=== PATIENT | female | born 1965 | race Two or more races ===

== ENCOUNTER 2016-06-07 02:51 | Emergency (ER) | payer OTHER ==
[~2016-06-07] VITALS: Ht 162.6 cm; Wt 81.6 kg
[2016-06-07 02:55] VITALS: BP 139/102
--- NOTE | 2016-06-07 03:21 | PHYS DOC ---
General Chief Complaint: FLANK PAIN Stated Complaint: FLANK PAIN,FEVER,MULTIPLE COMPLAINTS Time Seen by MD: 03:11 Source: patient, family Problems: History of Present Illness Initial Comments Patient here with for right flank pain. Patient says it started 2 days ago. She said she did fall over and her tried to pull her up, she may have pulled her back. She also states she has some chronic low back pain problems, but this feels somewhat different is rather higher in the flank area. She's had no fever or chills. There is no runny nose or sore throat. There is no chest pain or shortness of breath. She has no nausea vomiting or abdominal pain. She does have some increased frequency of urination or urinary looks dark and cloudy to her. She has mild dysuria. There is no change in bowel habits. There is no vaginal bleeding or discharge. She denies any focal extremity or neurologic complaints. Patient's done some cranberry juice and water for this at home. She says she actually does feel better with those, and was actually getting better with cranberry juice yesterday, but the pain got worse tonight so she decided to come to the ER. There's been nothing else done for this at home and no fractures noted increase or decrease her symptoms other than as described. Patient's past medical history history is remarkable for anxiety. She takes medication on an as-needed basis. She is a nonsmoker and nonuser of ethanol. There is no family history of renal stones. Allergies: Coded Allergies: Iodinated Contrast Media - Oral and (Verified Allergy, Intermediate, ) Penicillins (Verified Allergy, Intermediate, 06/07/16) shellfish derived (Verified Allergy, Intermediate, 06/07/16) Past Medical History Medical History: no pertinent history Psychosocial History: anxiety Social History Smoker: non-smoker Alcohol: none Review of Systems All Other Systems: Reviewed and Negative Physical Exam General Appearance: WD/WN, no apparent distress Neck: full range of motion, supple Respiratory: lungs clear, normal breath sounds, no respiratory distress Cardiovascular: regular rate, rhythm, no edema Gastrointestinal: non tender, soft, no organomegaly Back: no vertebral tenderness, CVA tenderness (R) Extremities: non-tender, normal inspection, no pedal edema Neurologic/Psychiatric: alert, normal mood/affect, oriented x 3 Skin: normal color Comments Generally is a well-developed well-nourished female in no acute distress. Vitals are as noted. Pertinent findings on physical exam shows a chest clear. Cardiac vascular exam shows regular rate and rhythm without murmur. The abdomen is soft and nontender without masses or megaly. There is no perineal findings. Back does show some mild right CVA tenderness. There is no signs of trauma. There is no vertebral tenderness. X-ray show no rash cyanosis or edema. She is awake alert oriented and cooperative with exam. Remainder of physical exam is clincially unremarkable. Orders, Labs, Meds Old charts note no prior ER visits within the current system. Labs today show a mildly elevated white count of 16.7. There is no significant shift. Chemistry profile is unremarkable. Patient is to numerous to count white cells, red cells, many bacteria, but negative nitrite. CT scan of the abdomen and pelvis shows some mild right hydronephrosis and hydroureter with some fat stranding suggesting pyelitis. Recently passed stone is also possible per radiology. 0425 Patient resting comfortably in the ER. She had good pain relief with Toradol. I discussed with the patient most likely cause her symptoms probably related to pyelonephritis. She looks fairly well, she is afebrile, and she does not look septic or toxic. White count was only mildly elevated there is no signs of renal failure. She's had no vomiting, think we'll try to treat this at home. I discussed with her that we'll give her an initial dose of antibiotic, Levaquin, here in the ED. We'll then send her home with prescriptions for Pyridium, Septra, as well as for Lortab for pain and Zofran for any nausea she might have. She voiced understanding of home care including rest, increasing fluids, use warm compresses to the area. I think she can follow up with primary care. She also voices understanding need to follow up and return to the ER immediately for increasing pain, vomiting, fever, or if worsening anyway, that point she may require hospitalization. At this time, however, she looks good and I think we can try outpatient care at home. Patient and her both voice understanding of the discharge plan and are agreeable to same. She looks well, in no acute discomfort distress, clinically stable, awaiting discharge home following IV antibiotics. MARKY CHURCH MD Jun 07, 2016 03:21
[2016-06-07 03:39] LABS: BASO # 0.1 x10^3/uL (0.0-0.2); BASO % 0 % (0-3); EOS % 0 % (0-3); HEMATOCRIT 44.6 % (36.0-47.0); LYMPH # 1.4 x10^3/uL (1.0-4.8); LYMPH % 8 % (24-48); MEAN CORPUSCULAR HEMOGLOBIN 30 pg (25-35); MEAN CORPUSCULAR HGB CONC 34 g/dL (31-37); MEAN CORPUSCULAR VOLUME 90 fL (79-100); MONO # 1.4 x10^3/uL (0.0-1.1); MONO % 8 % (0-9); NEUT # 13.9 x10^3uL (1.8-7.7); NEUT % 83 % (31-73); PLATELET COUNT 271 x10^3/uL (140-400); RED BLOOD COUNT 4.95 x10^6/uL (3.50-5.40); WHITE BLOOD COUNT 16.7 x10^3/uL (4.0-11.0)
[2016-06-07 03:46] LABS: BILIRUBIN,URINE NEG (NEG); CLARITY,URINE CLOUDY; COLOR,URINE YELLOW; GLUCOSE,URINE NEG (NEG)
[2016-06-07 03:47] LABS: BACTERIA,URINE MANY /HPF (0-FEW); NITRITE,URINE NEG (NEG); RBC,URINE TNTC /HPF (0-2); SQUAMOUS EPITHELIAL CELL,UR OCC /LPF; UROBILINOGEN,URINE 0.2 mg/dL (0.2 mg/dL); WBC,URINE TNTC /HPF (0-4)
[2016-06-07 03:54] LABS: ALBUMIN 3.6 g/dL (3.4-5.0); ALBUMIN/GLOBULIN RATIO 0.8 (1.0-1.7); CALCIUM 8.8 mg/dL (8.5-10.1); GFR 58.9; POTASSIUM 3.7 mmol/L (3.5-5.1)
[2016-06-07 03:58] LABS: % BANDS 12 % (0-9); % LYMPHS 9 % (24-48); % MONOS 8 % (0-10); % SEGS 71 % (35-66); PLT ESTIMATE ADEQUATE (ADEQUATE)
[2016-06-07] MEDS ORDERED: IV NORMAL SALINE 1,000ML 1,000 ML IV ONE (04:00)
[2016-06-07] MEDS ORDERED: KETOROLAC 30 MG/ML VIAL. IV ONE (04:00)
--- NOTE | 2016-06-07 04:06 | RAD ---
Examination: CT of the abdomen pelvis without contrast History: History of right flank pain for 2 days. COMPARISON None available. TECHNIQUE Axial CT images of the abdomen pelvis were performed without contrast. Coronal sagittal reformats were performed. Exposure: One or more of the following dose reduction technique were utilized for this examination: 1. Automated exposure control. 2.Adjustment of MA and /or KV according to patient size. 3. Use of iterative reconstruction technique. Findings : The visualized bibasilar lungs grossly appears unremarkable. No evidence of free air identified in the abdomen. The visualized non contrasted liver, spleen, adrenals grossly appears unremarkable. The gallbladder is mildly distended. The stomach is minimally distended. The visualized pancreas grossly appears unremarkable. The small bowel is nondilated. Feces and gas noted in the colon. The visualized appendix grossly appears unremarkable. There is mild right-sided hydronephrosis and hydroureter identified with mild inflammatory fat stranding identified surrounding the right renal pelvis and the right ureter. No evidence of intrarenal collecting system calculi identified . The caliber of the aorta grossly appears unremarkable . The urinary bladder is mildly distended. The visualized uterus, adnexa grossly appears unremarkable . No evidence of bony destructive lesion identified. IMPRESSION Mild right-sided hydronephrosis and hydroureter identified with mild inflammatory fat stranding identified about the right renal pelvis and the right ureter throughout likely pyelitis. An obstructing calculus is not identified however a recently passed stone is also a possibility. Electronically signed by: Anjum Noland (Jun 07, 2016 04:04:41)
[2016-06-07] MEDS ORDERED: HYDROCODONE/APAP 7.5/325MG TABLET. PO ONE (05:30)
[2016-06-07] MEDS ORDERED: PHENAZOPYRIDINE 100 MG TABLET. PO ONE (05:30)
== END 2016-06-07 06:05 | disposition home or self-care (01) ==
LOC: ER 02:51
DX: R10.9 Unspecified abdominal pain (principal); R30.0 Dysuria; R35.0 Frequency of micturition; G89.29 Other chronic pain; D72.829 Elevated white blood cell count, unspecified; Z91.041 Radiographic dye allergy status; Z91.013 Allergy to seafood; Z88.0 Allergy status to penicillin
CPT/HCPCS: 36415; 74176; 80053; 81001; 85007; 85027; 96361; 96365; 96375; 99285; J1885; J1956; J7030

== ENCOUNTER → 2021-07-17 | Outpatient (CLI) | payer OTHER ==
--- NOTE | 2021-07-28 13:04 | RAD ---
EXAM: BILATERAL DIGITAL 3D SCREENING MAMMOGRAPHY. HISTORY: Routine mammographic screening. TECHNIQUE: Bilateral digital 3D and tomographic images were obtained in CC and MLO projections. Compu ter-aided detection was applied. COMPARISON: None available. This is interpreted as a baseline study. COMPOSITION: B. There are scattered areas of fibroglandular density. FINDINGS: There are no suspicious masses, microcalcifications or architectural distortion. If prior e xaminations become available, an addendum will be issued. BI-RADS CATEGORY 1: Negative. RECOMMENDATION: 1. Routine screening mammography in one year. If mammography demonstrates dense breast tissue (heterogenously dense or extremely dense, category C or D), which could hide abnormalities, and if other risk factors for breast cancer have been identifi ed, supplemental screening tests that may be suggested by the ordering physician may be of benefit. D ense breast tissue, in and of itself, is a relatively common condition. Therefore, this information i s not provided to cause undue concern, but rather to raise awareness and to promote discussion with t he referring physician regarding the presence of other risk factors, in addition to dense breast tiss ue. The results of this mammography examination is provided to the patient and referring physician. T he patient should contact their referring physician if any questions or concerns exist regarding this report. PQRS compliance statement - Patient information was entered into a reminder system with a target due date for the next mammogram. "Our facility is accredited by the [employer] Mammography [employer]." Electronically signed by: Armida Hargrove MD (07/28/2021 1:02 PM) [id number]
== END ==
LOC: MAMMO 08:29
PROVIDERS: ATTEND Obstetrics & Gynecology
DX: Z12.31 Encounter for screening mammogram for malignant neoplasm of breast (principal)
CPT/HCPCS: 77063; 77067